=== PATIENT | female | born 1930 | race Two or more races ===

== ENCOUNTER 2016-10-19 09:12 | Outpatient (CLI) | payer MEDICARE, OTHER ==
[~2016-10-19 09:12] MED LIST: AMLO5TAB2 PO; CARV6.25 PO; DABI150C PO; FENO54TA PO; LISI2.5T2 PO
[2016-10-19] MEDS ORDERED: REGADENOSON 0.4 MG/5 ML DISP.SYRIN IVP ONE (10:00)
== END 2016-10-19 23:59 | disposition home or self-care (01) ==
LOC: NM 09:12
PROVIDERS: ATTEND Internal Medicine Cardiovascular Disease
DX: I50.9 Heart failure, unspecified (principal); I25.10 Atherosclerotic heart disease of native coronary artery without angina pectoris; R07.9 Chest pain, unspecified; Z79.82 Long term (current) use of aspirin; Z79.899 Other long term (current) drug therapy; Z95.5 Presence of coronary angioplasty implant and graft
CPT/HCPCS: 78452; A9502; J2785

== ENCOUNTER 2017-02-23 12:22 | Emergency (ER) | payer MEDICARE, OTHER ==
[~2017-02-23] VITALS: Ht 162.6 cm; Wt 66.7 kg
--- NOTE | 2017-02-23 12:35 | NUR ---
AAOX3, CAME TO ER C/O NOSEBLEED, PLACED NOSECLIP, PER FAMILY PATIENT IS ON BLOOD THINNER. FAMILY CAN'T RECALL THE NAME OF THE MEDICATION. RR IS EVEN AND UNLABORED WITH NAD NOTED. SKIN IS WARM AND NON DIAPHORETIC. AWAITING MD FOR EVAL.
[2017-02-23] MEDS ORDERED: LIDOCAINE VISCOUS 2% UD 15 ML UDC ONE (12:49)
[2017-02-23] MEDS ORDERED: OXYMETAZOLINE HCL NASAL SPRAY 30 ML BOTTLE NS ONE ×2 (12:50→13:00)
[2017-02-23] MEDS ORDERED: LIDOCAINE VISCOUS 2% UD 15 ML UDC MM ONE (13:00)
[2017-02-23 13:20] LABS: INR 0.97 (0.87-1.13); PROTHROMBIN TIME 10.1 SECS (9.5-12.7)
[2017-02-23 13:22] LABS: CALCIUM, SERUM 8.4 mg/dL (8.5-10.1); CARBON DIOXIDE 27 mmol/L (21-32); CHLORIDE 104 mmol/L (98-107); CREATININE 0.7 mg/dL (0.6-1.3); GLUCOSE 137 mg/dL (74-106); SODIUM SERUM 138 mmol/L (136-145); UREA NITROGEN, BLOOD 17 mg/dL (7-18)
[2017-02-23 13:27] LABS: BASOPHILS % (AUTO) 0.3 % (0.0-2.0); EOSINOPHILS # (AUTO) 0.1 /CMM (0.0-0.7); EOSINOPHILS % (AUTO) 1.6 % (0.0-6.0); HEMATOCRIT 43 % (33-45); HEMOGLOBIN 14.2 g/dL (11.5-14.8); LYMPHOCYTES # (AUTO) 1.9 /CMM (0.8-4.8); MEAN CORPUSCULAR HEMOGLOBIN 28 PG (26.0-33.0); MEAN CORPUSCULAR HGB CONC 33 g/dl (31.0-36.0); MEAN CORPUSCULAR VOLUME 84 fL (82-100); MONOCYTES # (AUTO) 0.6 /CMM (0.1-1.30); MONOCYTES % (AUTO) 8.3 % (2.0-12.0); NEUTROPHILS # (AUTO) 4.9 /CMM (1.8-8.9); NEUTROPHILS % (AUTO) 64.8 % (43.0-81.0); PLATELET COUNT (AUTO) 197 /CMM (150-450); RDW COEFFICIENT OF VARIATION 14.9 (11.5-15.0); RED BLOOD CELL COUNT(AUTO) 5.15 MIL/uL (4.0-5.2); WHITE BLOOD COUNT (AUTO) 7.6 K/uL (4.3-11.0)
--- NOTE | 2017-02-23 14:43 | NUR ---
Patient discharged to home in stable condition. Written and verbal after care instructions given. Patient verbalizes understanding of instruction. DC HOME WITH HER DAUGHTER
[2017-02-23 14:45] VITALS: BP 145/70
[2017-02-24] MEDS ORDERED: ASPI81TA2 PO (13:30)
[2017-02-24] MEDS ORDERED: OLME20TA15 PO (13:30)
[2017-02-24] MEDS ORDERED: METF500T7 PO (13:30)
[2017-02-24] MEDS ORDERED: APIX5TAB PO (13:30)
[2017-02-24] MEDS ORDERED: FURO20TA4 PO (13:30)
[2017-02-24] MEDS ORDERED: LISI-603 PO (13:30)
== END 2017-02-23 14:46 | disposition home or self-care (01) ==
LOC: ER 12:24
DX: R04.0 Epistaxis (principal); I10 Essential (primary) hypertension; Z98.890 Other specified postprocedural states; Z88.6 Allergy status to analgesic agent
CPT/HCPCS: 36415; 80048-TC; 85025-TC; 85730-TC; A4606; Z7610

== ENCOUNTER 2017-02-24 11:14 | Inpatient (IN) | payer MEDICARE, OTHER ==
[~2017-02-24] VITALS: Ht 152.4 cm; Wt 64.0 kg
--- NOTE | 2017-02-24 11:35 | NUR ---
BIB DAUGHTER, C/O EPISTAXIS SINCE YESTERDAY, UNRELIEVED WITH NASAL PACKING, NAD NOTED, VSS, RESP EVEN AND UNLABORED, AT BS.
[2017-02-24] MEDS ORDERED: ONDANSETRON 4 MG TAB.RAPDIS ONE (12:07)
[2017-02-24] MEDS ORDERED: HYDROCODONE/APAP 5/325MG 1 EACH TABLET ONE (12:07)
[2017-02-24] MEDS ORDERED: HYDROCODONE/APAP 5/325MG 1 EACH TABLET PO ONE (12:30)
[2017-02-24] MEDS ORDERED: ONDANSETRON 4 MG TAB.RAPDIS SL ONE (12:30)
--- NOTE | 2017-02-24 13:03 | NUR ---
CALLED [facility], NURSE ORTHOPEDIC WAS PAGED.
[2017-02-24 13:13] LABS: BASOPHILS # (AUTO) 0.1 /CMM (0.0-0.2); BASOPHILS % (AUTO) 0.6 % (0.0-2.0); EOSINOPHILS # (AUTO) 0.1 /CMM (0.0-0.7); EOSINOPHILS % (AUTO) 0.7 % (0.0-6.0); HEMATOCRIT 42 % (33-45); HEMOGLOBIN 13.9 g/dL (11.5-14.8); LYMPHOCYTES # (AUTO) 1.5 /CMM (0.8-4.8); LYMPHOCYTES % (AUTO) 11.8 % (20.0-44.0); MEAN CORPUSCULAR HEMOGLOBIN 27 PG (26.0-33.0); MEAN CORPUSCULAR HGB CONC 33 g/dl (31.0-36.0); MEAN CORPUSCULAR VOLUME 83 fL (82-100); MONOCYTES # (AUTO) 0.9 /CMM (0.1-1.30); NEUTROPHILS # (AUTO) 10.3 /CMM (1.8-8.9); NEUTROPHILS % (AUTO) 79.9 % (43.0-81.0); PLATELET COUNT (AUTO) 208 /CMM (150-450); RDW COEFFICIENT OF VARIATION 14.4 (11.5-15.0); RED BLOOD CELL COUNT(AUTO) 5.06 MIL/uL (4.0-5.2); WHITE BLOOD COUNT (AUTO) 12.9 K/uL (4.3-11.0)
[2017-02-24 13:27] LABS: INR 0.95 (0.87-1.13); PROTHROMBIN TIME 9.9 SECS (9.5-12.7)
[2017-02-24] MEDS ORDERED: LISI-603 PO (13:30)
[2017-02-24] MEDS ORDERED: FURO20TA4 PO (13:30)
[2017-02-24] MEDS ORDERED: OLME20TA15 PO (13:30)
[2017-02-24] MEDS ORDERED: ASPI81TA2 PO (13:30)
[2017-02-24] MEDS ORDERED: APIX5TAB PO (13:30)
[2017-02-24] MEDS ORDERED: METF500T7 PO (13:30)
[2017-02-24 13:33] LABS: CALCIUM, SERUM 8.5 mg/dL (8.5-10.1); CARBON DIOXIDE 28 mmol/L (21-32); CHLORIDE 102 mmol/L (98-107); CREATININE 0.6 mg/dL (0.6-1.3); GLUCOSE 103 mg/dL (74-106); POTASSIUM 3.8 mmol/L (3.5-5.1); SODIUM SERUM 133 mmol/L (136-145); UREA NITROGEN, BLOOD 16 mg/dL (7-18)
--- NOTE | 2017-02-24 13:42 | NUR ---
REPORT TO LINDY
--- NOTE | 2017-02-24 14:29 | NUR ---
AIRFREIGHT OPERATIONS AGENT OPENING NOTES RECEIVED PATIENT FROM ER, A/OX4, LUXEMBOURGISH SPEAKING, DAUGHTER ON BEDSIDE. NO ACUTE DISTRESS, NO SOB NOTED. GC=912/85, P=92, R=18, T=98.9, PATIENT ON TELE SINUS RHYTHM. IV SITE INTACT AND PATENT. KEPT PATIENT SAFE AND COMFORTABLE. BED IN LOW POSITION, LOCKED, HOB ELEVATED, CALL LIGHT IN REACH. WAITING FOR MD'S ADMITTING ORDERS. WILL CONTINUE TO MONITOR ACCORDINGLY
[2017-02-24 14:30] VITALS: BP 153/85
[2017-02-24 16:00] VITALS: BP 158/79
[2017-02-24] MEDS ORDERED: ONDANSETRON HCL/PF 4 MG/2 ML VIAL IVP PRN (16:30)
[2017-02-24] MEDS ORDERED: MAGNESIUM HYDROXIDE 30 ML UDC PO PRN (16:30)
[2017-02-24] MEDS ORDERED: MAG HYDROX/AL HYDROX/SIMETH 30 ML UDC PO PRN (16:30)
[2017-02-24] MEDS ORDERED: ACETAMINOPHEN 325 MG TABLET PO PRN (16:30)
[2017-02-24] MEDS ORDERED: Z GUARD REMEDY 2 OZ OINT TP PRN (16:30)
[2017-02-24] MEDS ORDERED: ZOLPIDEM TARTRATE 5 MG TABLET PO PRN (16:30)
[2017-02-24] MEDS: HYDROCODONE/APAP 5/325MG 1 EACH TABLET PO PRN (17:18)
--- NOTE | 2017-02-24 19:00 | NUR ---
RN CLOSING NOTES PATIENT IN BED RESTING. NO ACUTE DISTRESS, NO SOB NOTED. ALL NEEDS ATTENDED AND PROVIDED. BED IN LOW LOCKED POSITION, SIDERAILS UPX2. CALL LIGHT IN REACH. ENDORSED TO NIGHT RN FOR POPPY.
[2017-02-24] MEDS ORDERED: SILVER NITRATE APPLICATOR 1 EA BOX TP STA (19:25)
[2017-02-24] MEDS ORDERED: LIDOCAINE 1%-EPI 1:100,000 20 ML VIAL TP ONE (19:30)
--- NOTE | 2017-02-24 19:30 | NUR ---
telephone answerer note Received patient awake and alert in bed with active nosebleed. Dr. Dennis at bedside to achieve hemostasis of nose. Received orders from MD for silver nitrate swabs, nose tray, 1% lidocaine with Epi 1:100. Carried out. Patient stable. Will continue to monitor.
[2017-02-24] MEDS ORDERED: HYDROCODONE/APAP 10/325MG 1 EA TABLET PO ONE (20:30)
--- NOTE | 2017-02-24 20:30 | NUR ---
telecommunication operator note Bedside procedure by Dr. Sonny thomas. Nose bleed has stopped at this time. New orders for Afrin and nasal tray @ bedside in case of recurrence, received and carried out.
[2017-02-24] MEDS ORDERED: OXYMETAZOLINE HCL NASAL SPRAY 30 ML BOTTLE NS PRN (21:00)
[2017-02-24 22:00] VITALS: BP 152/78
[2017-02-25] VITALS: BP 140/70
[2017-02-25] MEDS ORDERED: LORAZEPAM INJ 2 MG/ML VIAL IV PRN (01:00)
--- NOTE | 2017-02-25 01:00 | NUR ---
telephone answerer note patient very anxious. Relaxation techniques provided. Still no relief. Notified Dr. Caruso. New order received for Lorazepam 0.5mg IV one time, received and carried out. Will continue to monitor.
--- NOTE | 2017-02-25 01:49 | NUR ---
telephony engineer note patient resting comfortably at this time. Will continue to monitor.
[2017-02-25 04:00] VITALS: BP 141/65
[2017-02-25 06:00] VITALS: BP 106/61
--- NOTE | 2017-02-25 06:21 | NUR ---
telephone order dispatcher note patient sleeping at this time. All needs met and attended to. Will endorse to day shift for rodrigo.
--- NOTE | 2017-02-25 07:15 | NUR ---
EMPLOYMENT PROGRAMS ANALYST NOTES RECEIVED PATIENT IN BED RESTING. NO ACUTE DISTRESS, NO SOB NOTED. DENIES PAIN AT THIS TIME. ON TELE HR 89 WITH NORMA. IV SITE INTACT AND PATENT. SAFETY MEASURES IMPLEMENTED. BED IN LOW POSITION, LOCKED, SIDERAILS UPX2, CALL LIGHT IN REACH, WILL CONTINUE TO MONITOR ACCORDINGLY.
[2017-02-25 07:56] LABS: BASOPHILS # (AUTO) 0.1 /CMM (0.0-0.2); BASOPHILS % (AUTO) 0.5 % (0.0-2.0); EOSINOPHILS # (AUTO) 0.1 /CMM (0.0-0.7); EOSINOPHILS % (AUTO) 0.7 % (0.0-6.0); HEMATOCRIT 38 % (33-45); HEMOGLOBIN 12.7 g/dL (11.5-14.8); LYMPHOCYTES # (AUTO) 1.8 /CMM (0.8-4.8); LYMPHOCYTES % (AUTO) 15.6 % (20.0-44.0); MEAN CORPUSCULAR HEMOGLOBIN 28 PG (26.0-33.0); MEAN CORPUSCULAR HGB CONC 34 g/dl (31.0-36.0); MEAN CORPUSCULAR VOLUME 84 fL (82-100); MONOCYTES % (AUTO) 8.4 % (2.0-12.0); NEUTROPHILS # (AUTO) 8.7 /CMM (1.8-8.9); NEUTROPHILS % (AUTO) 74.8 % (43.0-81.0); PLATELET COUNT (AUTO) 190 /CMM (150-450); RDW COEFFICIENT OF VARIATION 15.5 (11.5-15.0); WHITE BLOOD COUNT (AUTO) 11.6 K/uL (4.3-11.0)
[2017-02-25 08:00] VITALS: BP 124/70
[2017-02-25 08:22] LABS: CALCIUM, SERUM 8.7 mg/dL (8.5-10.1); CARBON DIOXIDE 29 mmol/L (21-32); CHLORIDE 102 mmol/L (98-107); CHOLESTEROL 142 mg/dL (<200); CREATININE 0.8 mg/dL (0.6-1.3); GLUCOSE 123 mg/dL (74-106); HDL CHOLESTEROL 54 mg/dL (40-60); LDL 74 mg/dL (0-99); PHOSPHORUS 4.3 mg/dL (2.5-4.9); POTASSIUM 4.3 mmol/L (3.5-5.1); SODIUM SERUM 138 mmol/L (136-145); THYROID STIMULATING HORMONE 2.634 uIU/mL (0.358-3.74); TRIGLYCERIDES 113 mg/dL (30-150); UREA NITROGEN, BLOOD 17 mg/dL (7-18)
[2017-02-25] MEDS: METFORMIN XR 500 MG TAB.SR.24H PO SCH (09:00)
[2017-02-25] MEDS: LOSARTAN POTASSIUM 50 MG TABLET PO SCH (10:08)
[2017-02-25] MEDS: LISINOPRIL (20MG) 20 MG TABLET PO SCH (10:09)
[2017-02-25] MEDS: FUROSEMIDE 20 MG TABLET PO SCH (10:09)
--- NOTE | 2017-02-25 15:49 | NUR ---
RN NOTES CALLED DR PERSAUD FOR DISCHARGE CLEARANCE; PATIENT IS OK FOR DISCHARGE PER DR PERSAUD.
[2017-02-25 16:00] VITALS: BP 128/84
--- NOTE | 2017-02-25 19:25 | NUR ---
RN CLOSING NOTES PATIENT'S DAUGHTER REFUSED DISCHARGE, PER DAUGHTER SHE IS NOT COMFORTABLE BECAUSE HER MOM LIVES ALONE AND SHE ALSO WANTED TO TALK TO THE DR BEFORE HER MOM GETS DISCHARGE. PATIENT IN BED RESTING. NO ACUTE DISTRESS, NO SOB NOTED. ALL NEEDS ATTENDED AND PROVIDED. REPOSITIONED AND TURNED PATIENT EVERY 2 HOURS. KEPT PATIENT SAFE AND COMFORTABLE. BED IN LOW POSITION,LOCKED, HEAD OF BED ELEVATED, SIDERAILS UPX2. CALL LIGHT IN REACH. ENDORSED TO WATER SANDER RN FOR POPPY.
[2017-02-25] MEDS: HYDROCODONE/APAP 5/325MG 1 EACH TABLET PO PRN (19:30)
[2017-02-25 20:00] VITALS: BP 143/61
--- NOTE | 2017-02-25 20:02 | NUR ---
MS/RN NOTES PATIENT IN BED, HOB ELEVATED , MONITORING FOR PAIN MANAGEMENT AND EFFECTIVENESS, FAMILY AT BED SIDE, RECEIVED ENDORSEMENT AND SPOKE WITH DAUGHTER THAT PATIENT FAMILY WOULD LIKE TO HAVE ANOTHER NIGHT TO BE MONITORED AND CHARGE NURSE INFORM, DAUGHTER WOULD LIKE TO TALK TO MD IN AM. ATTEND TO NEEDS PROVIDE FLUIDS, RESPIRATION EVEN AND UNLABORED.
[2017-02-26] MEDS: HYDROCODONE/APAP 5/325MG 1 EACH TABLET PO PRN ×2 (05:36→10:18)
--- NOTE | 2017-02-26 05:38 | NUR ---
MS/RN NOTES PATIENT OBSERVED GRIMACE AND GUARDING. WHEN ASKED IF IN PAIN STATED IN PAIN, SHOULDER AND LEFT FACE. GIVEN PO NORCO 5-325 MG, WILL MONITOR EFFECTIVENESS, OBSERVE NOSEBLEED IN NOSTRIL, SCANTY PROVIDED PRN NASAL SPRAY . WILL MONITOR.
--- NOTE | 2017-02-26 06:23 | NUR ---
313-1 MS/RN CLOSING NOTES PATIENT ABLE TO SLEEP DURING THE NIGHT. ASSISTED TO BSC TO SUPERVISE, OBSERVED WEAKNESS , PSIN CONTROLLED, RESPIRATION EVEN AND UNLABORED. SKIN INATCT AND DRY. IV SITE ON R HAND W/ NO S/S OF INFILTRATION. PROVIDED FLUIDS. COOPERATIVE TO CARE. BED IN LOCK POSITION AT ALL TIMES. WILL ENDORSE TO AM RN FOR POPPY.
--- NOTE | 2017-02-26 07:38 | NUR ---
MS/RN OPENING NOTE PATIENT RECEIVED IN BED IN STABLE CONDITION. A/O X 3. NO NOSE BLEEDING NOTED AT THIS TIME. NO SIGNS OF ACUTE DISTRESS, NO COMPLAIN OF PAIN OR DISCOMFORT. ALL NEEDS ATTENDED TO. CALL LIGHT WITHIN REACH. WILL CONTINUE TO MONITOR TO ENSURE SAFETY.
--- NOTE | 2017-02-26 07:45 | NUR ---
MS/RN SEEN BY DR CASTELLANO PATIENT SEEN BY DR CASTELLANO WITH ORDERS TO DISCHARGE HOME TODAY. DAUGHTER OLEG AT BEDSIDE MADE AWARE.
[2017-02-26 08:00] VITALS: BP 147/72
[2017-02-26 08:25] VITALS: BP 147/72
[2017-02-26] MEDS: FUROSEMIDE 20 MG TABLET PO SCH (08:25)
[2017-02-26] MEDS: METFORMIN XR 500 MG TAB.SR.24H PO SCH (08:25)
[2017-02-26] MEDS: LISINOPRIL (20MG) 20 MG TABLET PO SCH (08:25)
[2017-02-26] MEDS: LOSARTAN POTASSIUM 50 MG TABLET PO SCH (08:25)
--- NOTE | 2017-02-26 11:23 | NUR ---
MS/INSURANCE ADVISOR PATIENT DISCHARGE HOME IN STABLE CONDITION. A/O X 3. NO SIGNS OF ACUTE DISTRESS. NO COMPLAIN OF PAIN OR DISCOMFORT. DISCHARGE INSTRUCTIONS AND TEACHINGS PROVIDED TO PATIENT'S DAUGHTER (PRIMARY CAREGIVER) VERBALIZED UNDERSTANDING. ALSO MADE AWARE TO FOLLOW UP WITH PRIMARY PHYSICIAN LOLLY, PER DAUGHTER OLEG SHE ALREADY HAVE A APPOINTMENT MADE FOR TOMORROW. IV LINE AND NAME BAND REMOVED. LEFT IN STABLE CONDITION VIA PRIVATE CAR ACCOMPANIED BY DAUGHTER.
== END 2017-02-26 11:00 | disposition home or self-care (01) | DRG 982 ==
LOC: ER 11:15 → TELE 13:37 → MED 02-25 09:51
PROC: 0W3Q0ZZ Control Bleeding in Respiratory Tract, Open Approach (ICD-10-PCS; principal; 2017-02-24)
DX: R04.0 Epistaxis (principal); D68.59 Other primary thrombophilia; I48.91 Unspecified atrial fibrillation; I10 Essential (primary) hypertension; I25.10 Atherosclerotic heart disease of native coronary artery without angina pectoris; Z79.01 Long term (current) use of anticoagulants; Z79.82 Long term (current) use of aspirin
CPT/HCPCS: 36415; 80048-TC; 80061-TC; 83735-TC; 84100-TC; 84443-TC; 85025-TC; 85730-TC; 86850-TC; 87081-TC; A4606; A6402; J2060; J3490; Q0162; Z7610

== ENCOUNTER 2017-03-07 22:20 | Emergency (ER) | payer MEDICARE, OTHER ==
[~2017-03-07 22:20] MED LIST changes: -AMLO5TAB2 PO; -CARV6.25 PO; -DABI150C PO; -FENO54TA PO; +FURO20TA4 PO; +LISI-603 PO; -LISI2.5T2 PO; +METF500T7 PO; +OLME20TA15 PO
--- NOTE | 2017-03-07 23:35 | NUR ---
pt nose no longer bleeding. decided did not want to be seen in er and will call pmd in am.
== END 2017-03-08 | disposition left against medical advice (07) ==
LOC: ER 22:23
DX: Z53.21 Procedure and treatment not carried out due to patient leaving prior to being seen by health care provider (principal)